=== PATIENT | female | born 1995 | race Hispanic/Latino ===

== ENCOUNTER 2024-11-26 22:49 | Emergency (ER) | payer SELFPAY ==
[2024-11-27] MEDS ORDERED: Dexamethasone 10 MG/ML VIAL ONE (01:16)
== END 2024-11-27 04:15 | disposition home or self-care (01) ==
LOC: ERS 22:49
DX: J45.901 Unspecified asthma with (acute) exacerbation (principal); J18.9 Pneumonia, unspecified organism
CPT/HCPCS: J1100; J7620